=== PATIENT | male | born 1995 | race Caucasian/White ===

== ENCOUNTER 2017-11-26 12:05 | Inpatient (IN) | payer BC, OTHER ==
[~2017-11-26] VITALS: Ht 182.9 cm; Wt 86.2 kg
[2017-11-26] MEDS ORDERED: THIAMINE HCL 200 MG/2 ML VIAL IM ONE (13:00)
[2017-11-26] MEDS ORDERED: IBUPROFEN 400 MG TABLET PO PRN (13:00)
[2017-11-26] MEDS ORDERED: MAGNESIUM HYDROXIDE 30 ML LIQUID UDC PO PRN (13:00)
[2017-11-26] MEDS ORDERED: DIAZEPAM 10 MG TABLET PO PRN (13:00)
[2017-11-26] MEDS ORDERED: MIRALAX 17 GM POWD.PACK PO PRN (13:00)
[2017-11-26] MEDS ORDERED: LORAZEPAM 2 MG/1 ML VIAL IM PRN (13:00)
[2017-11-26] MEDS ORDERED: DIAZEPAM 5 MG TABLET PO PRN (13:00)
[2017-11-26] MEDS ORDERED: ONDANSETRON 4 MG/2 ML VIAL IM PRN (13:00)
[2017-11-26] MEDS ORDERED: ONDANSETRON ODT 4 MG TAB.RAPDIS SL PRN (13:00)
[2017-11-26] MEDS ORDERED: LOPERAMIDE HCL 2 MG CAPSULE PO PRN ×2 (13:00)
[2017-11-26] MEDS ORDERED: diphenhydrAMINE 50 MG CAPSULE PO PRN (13:00)
[2017-11-26] MEDS ORDERED: DICYCLOMINE HCL 20 MG TABLET PO PRN (13:00)
[2017-11-26] MEDS ORDERED: ACETAMINOPHEN 325 MG TABLET PO PRN (13:00)
[2017-11-26] MEDS ORDERED: MAG HYDROX/AL HYDROX/SIMETH 30 ML LIQUID UDC PO PRN (13:00)
[2017-11-26 13:30] VITALS: BP 116/69
--- NOTE | 2017-11-26 13:30 | NUR ---
PRE ADMISSION NOTE Patient is alert awake oriented x4. Patient is admitted for ETOH withdrawal. VITAL SIGNS- B/P-116/69, RR-18, HR-73, Spo2-97%, Pain -0/10. Temp-98.1. Patient reported PMH of anxiety, herniated disk, chronic pain, scoliosis, broken left ankle, Rheumatoid arthritis and withdrawal induced seizure last one was 1 week ago. Patient is anxious, agitated, and answering inappropriately, patient has poor eye contact. Patient's gait is steady. Patient mood is very labile. Patient brought medications with him from home. Explained patient with unit protocol. Will admit the patient on third floor. Addendum: 11/26/17 at 1527 by ROSALBA HURT LVN Patient admitted for BENZO/HEROIN/METH WITHDRAWAL
--- NOTE | 2017-11-26 13:47 | NUR ---
ADMISSION NOTE ALLERGY-NKA STATUS-FULL CODE HEIGHT-6'1 WEIGHT-190 IBS PCP-Patel. LANDRY-4. Patient is a 22 year old male admitted on 11/26/17 for Benzo(Xanax),Heroin, Meth withdrawal, arrived on the unit at 1347. Patient unable to provide UA for UDS. Skin and body check completed, skin intact and no open wounds noted,no contraband found. Pt is full code, NKA, regular diet and on fall/seizure precautions. Pt refuses pneumonia vaccine. Pt brought medication with him from home. Patient reported PMH of anxiety, herniated disk, chronic pain, scoliosis, left ankle fracture, Rheumatoid arthritis. Patient reported he abruptly stop using the Xanax and experienced a withdrawal induced seizure 1 week ago and did not get any medical help. Upon assessment, pt is AAOx4. His mood is labile and anxious, agitated, poor eye contact. Respirations even and unlabored. Denies SOB or chest pain. Bowel sounds active x 4, abdomen soft. PERRLA. Pt denies SI/HI at this time. Patient denies any history of SI/HI. Patient reported family history of alcoholism and hypertension. Patient reported was in treatment in September 2017 and complete the treatment. Patient reported sober for 75 days from May 2017 to August 2017. Substance use History: BENZO (Xanax)- Patient unable to to report amount and daily use patient reported last used was 11/26/17 prior to admission. Patient is not reliable source of information. Will continues to ask patient to verify substance use history. Heroin- Patient reported using since 16 year old, for the past month using daily 1/2gm IV, Snort, Smoke. Last used was 11/12/17 1/2gm IV. Meth-Patient reported using since 20 year old, for the past month using daily 1/2gm smoke. Last used was 11/12/17 1/2gm smoke. Patient seeking treatment because it is affecting his health and family. Patient reported there is no specific trigger. Patient states that he is ready to focus on recovery and open to 12 steps program. Educated patient about plan of care including detox, group therapy and discharge planning. Encourage patient to be open honest and verbalized support for patient in his recovery. Patient oriented to room and encouraged to notify staff with any concerns. Safety measures in place. Call light within reach, side rails up x 2, bed locked and in low position. Will continue to monitor.
[2017-11-26] MEDS ORDERED: TRIA10.8 NS (14:34)
[2017-11-26] MEDS ORDERED: FLUT9.9S NS (14:34)
[2017-11-26] MEDS: GABAPENTIN 300 MG CAPSULE PO SCH ×2 (14:35→20:41)
[2017-11-26 17:00] VITALS: BP 114/64
--- NOTE | 2017-11-26 17:00 | NUR ---
PT COMMUNICATION Patient reported using Xanax for 8 years 6mg PO daily and last used was 10/31/17 at 1100 6mg PO.
[2017-11-26] MEDS: DIAZEPAM 5 MG TABLET PO SCH ×3 (17:08→23:21)
[2017-11-26] MEDS: DIAZEPAM 10 MG TABLET PO PRN ×2 (17:09→21:42)
--- NOTE | 2017-11-26 17:09 | NUR ---
PRN VALIUM Patient reported increased anxiety, agitation, sweats, bilateral hand tremors, light headed, CIWA score noted-11. PRN Valium 10mg PO given as ordered. Will cont to monitor and reassess.
[2017-11-26 17:30] LABS: BASOPHILS # (AUTO) 0.1 K/uL (0.0-8.0); BASOPHILS % (AUTO) 0.8 % (0.0-2.0); EOSINOPHILS # (AUTO) 0.2 K/uL (0.0-0.7); EOSINOPHILS % (AUTO) 2.4 % (0.0-7.0); HEMATOCRIT 44.2 % (36.7-47.1); LYMPHOCYTES # (AUTO) 2.9 K/uL (20.0-40.0); LYMPHOCYTES % (AUTO) 33.9 % (20.5-51.5); MEAN CORPUSCULAR HEMOGLOBIN 31.9 uug (23.8-33.4); MEAN CORPUSCULAR HGB CONC 34 g/dL (32.5-36.3); MEAN CORPUSCULAR VOLUME 93.9 fL (73.0-96.2); MONOCYTES # (AUTO) 0.8 K/uL (2.0-10.0); MONOCYTES % (AUTO) 9.1 % (0.0-11.0); NEUTROPHILS # (AUTO) 4.6 K/uL (1.8-8.9); NEUTROPHILS % (AUTO) 53.8 % (38.5-71.5); PLATELET COUNT (AUTO) 207 K/uL (152-348); RED BLOOD CELL COUNT(AUTO) 4.71 MIL/uL (4.06-5.63); WHITE BLOOD COUNT (AUTO) 8.5 K/uL (3.6-10.2)
[2017-11-26 17:42] LABS: *AMPHETAMINE, URINE NEGATIVE (NEGATIVE); *BARBITURATE, URINE NEGATIVE (NEGATIVE); *CANNABINOID, URINE POSITIVE (NEGATIVE); *COCCAINE, URINE POSITIVE (NEGATIVE); *OPIATE, URINE NEGATIVE (NEGATIVE); *PHENCYCLIDINE SCREEN,URINE NEGATIVE (NEGATIVE)
[2017-11-26 17:44] LABS: ALANINE AMINOTRANSFERASE 30 U/L (16-63); ALKALINE PHOSPHATASE 84 U/L (50-136); AMYLASE 38 U/L (25-115); ASPARTATE AMINOTRANSFERASE 21 U/L (15-37); BILIRUBIN,TOTAL 0.4 mg/dL (0.2-1.0); CARBON DIOXIDE 35 mmol/L (21-32); CHLORIDE 101 mmol/L (98-107); CREATININE 1.2 mg/dL (0.6-1.3); GLUCOSE 88 mg/dL (74-106); LIPASE 89 U/L (73-393); MAGNESIUM 2.2 mg/dL (1.8-2.4); TOTAL PROTEIN, SERUM 7.4 g/dL (6.4-8.2); UREA NITROGEN, BLOOD 19 mg/dL (7-18)
[2017-11-26 17:49] LABS: ETHANOL < 3 MG/DL (0-0)
--- NOTE | 2017-11-26 17:58 | NUR ---
PATIENT COMMUNICATION Patient reported he was living in a sober living, MRSA swabs was done as unit protocol. Patient also reported last detox was in [facility] and completed 10 days of treatment.
--- NOTE | 2017-11-26 18:09 | NUR ---
VALIUM REASSESSMENT CIWA score 8, patient reported Valium was effective in controlling his withdrawal.
--- NOTE | 2017-11-26 19:17 | NUR ---
END OF SHIFT NOTE Gave report to night nurse, patient newly admitted for Xanax, Heroin, Meth withdrawal. Patient is on Valium taper tolerating well. During shift patient received PRN Valium 10mg PO noted to be effective. Vital signs WNL. Skin intact warm and dry to touch. Educated patient regarding importance of attending groups and activities. Patient verbalized understanding . Encourage PO fluids as tolerated. All safety measures in place. Patient endorsed to night nurse in stable condition.
[2017-11-26 20:00] VITALS: BP 124/77
--- NOTE | 2017-11-26 20:00 | NUR ---
START OF SHIFT NOTE RECEIVED REPORT FROM DAY SHIFT NURSE. PATIENT IS A 22 YEAR OLD MALE NEWLY ADMITTED FOR BENZO/HEROIN WITHDRAWAL. PATIENT WAS PLACED ON 3 DAY VALIUM TAPER. PATIENT WAS GIVEN PRN VALIUM. LAST CIWA 8. PATIENT PRESENTS WITH FLAT AFFECT, UNSHAVEN ., DISHEVELED, LABILE MOOD, BLUNTED, ANXIETY, SWEATING, RESTLESS LEGS, NAUSEATED BUT NO EMESIS, IRRITABLE, HEADACHE AND GENERALIZED BODY ACHES. ENCOURAGED FLUIDS. WILL CONTINUE TO MONITOR.
[2017-11-26] MEDS: METHOCARBAMOL 750 MG TABLET PO PRN (20:43)
[2017-11-26] MEDS: MAGNESIUM CHLORIDE 64 MG TABLET.SA PO SCH (20:43)
[2017-11-26] MEDS: QUETIAPINE FUMARATE 25 MG TABLET PO SCH (20:43)
--- NOTE | 2017-11-26 20:43 | NUR ---
PRN ROBAXIN ADMINISTRATION PATIENT C/O GENERALIZED BODY ACHES. WILL MONITOR FOR EFFECTIVENESS
[2017-11-26] MEDS: BUPRENORPHINE HCL 2 MG TAB.SUBL SL PRN (21:01)
--- NOTE | 2017-11-26 21:01 | NUR ---
PRN SUBUTEX ADMINISTRATION PATIENT C/O MUSCLE ACHES, ABDOMINAL CRAMPING, ANXIETY, SWEATING. COWS UPON ASSESSMENT IS 13. WILL MONITOR FOR EFFECTIVENESS Addendum: 11/27/17 at 0733 by EVA MONTANEZ LVN COWS 14 WHEN SUBUTEX WAS GIVEN.
--- NOTE | 2017-11-26 21:01 | NUR ---
PRN VALIUM ADMINISTRATION PATIENT C/O ANXIETY, UNABLE TO SIT STILL, PACING INSIDE ROOM , HALLWAY, AGITATED AND IRRITABLE. WILL MONITOR FOR EFFECTIVENESS Addendum: 11/27/17 at 719 by EVA MONTANEZ LVN CORRECTION.: PATIENT WAS GIVEN PRN VALIUM AT 2142 Addendum: 11/27/17 at 732 by EVA MONTANEZ LVN CIWA WAS 13 WHEN VALIUM WAS GIVEN
--- NOTE | 2017-11-26 21:43 | NUR ---
RAGHU CRUZ RE-ASSESSMENT PATIENT NOTED WALKING AROUND THE HALLWAY. NO FACIAL GRIMACING. PER PATIENT NANCY HELPFUL . WILL CONTINUE TO MONITOR.
--- NOTE | 2017-11-26 22:01 | NUR ---
PRN VALIUM RE-ASSESSMENT PATIENT IS LESS ANXIOUS AND CALM. VALIUM HELPFUL PER PATIENT. COWS 5 AT THIS TIME. WILL CONTINUE TO MONITOR. Addendum: 11/27/17 at 0728 by EVA MONTANEZ LVN VALIUM WAS RE-ASSESSED AT 2242 . CIWA WENT DOWN TO 6
--- NOTE | 2017-11-26 22:01 | NUR ---
PRN SUBUTEX RE-ASSESSMENT PATIENT CALM, LESS ANXIOUS. COWS 5 AT THIS TIME. WILL CONTINUE TO MONITOR.
[2017-11-26] MEDS: KETOROLAC TROMETHAMINE 30 MG INJ IM PRN (23:20)
--- NOTE | 2017-11-26 23:20 | NUR ---
PRN TORADOL IM ADMINISTRATION PATIENT C/O BACK PAIN 02/08. WILL MONITOR FOR EFFECTIVENESS
[2017-11-27] VITALS: BP 133/85
--- NOTE | 2017-11-27 00:20 | NUR ---
PRN TORADOL IM RE-ASSESSMENT PATIENT IN BED WITH EYES CLOSED. NO FACIAL GRIMACING. RESPIRATION EVEN AND UNLABORED. WILL CONTINUE TO MONITOR.
--- NOTE | 2017-11-27 04:00 | NUR ---
COWS AND CIWA DEFERRED PATIENT SLEEPING. RESPIRATION EVEN AND UNLABORED. VS REFUSED. WILL CONTINUE TO MONITOR
--- NOTE | 2017-11-27 07:30 | NUR ---
START OF SHIFT: PATIENT IS A 22YR OLD MALE ADMITTED TO [facility] ON 11/26/17 FOR A MEDICALLY SUPERVISED WITHDRAWAL FROM BENZODIAZEPINES AND OPIATES. HE HAS BEEN PLACED ON A 3 DAY VALIUM TAPER. PRN MEDS GIVEN ON PM SHIFT: VALIUM 5MG, VALIUM 10MG, ROBAXIN, TORADOL AND SUBUTEX. PATIENT HAS SLEPT FOR 5+ HOURS, LAST COWS 5 AND CIWA 5 @ MIDNIGHT.PATIENT IS ASLEEP IN BED AT THIS TIME, BREATHING EVEN AND UNLABORED, SIDE RAILS UP X 2. CONTINUE TO FOLLOW MD PLAN OF CARE.
--- NOTE | 2017-11-27 07:31 | NUR ---
END OF SHIFT NOTE PATIENT SLEPT 6 HOURS. FLUID INTAKE 750ML. VOIDED X 3. BM X 1. MONITORED PATIENT THROUGHOUT SHIFT. PATIENT PRESENTED WITH LABILE MOOD, BLUNTED, ANXIETY, AGITATION , RESTLESS , DEMANDING, "MED SEEKING ", ARGUMENTATIVE, DYSPHORIA, OBSESSIVE-COMPULSIVE THOUGHTS, LOUD SPEECH, MANIPULATIVE, ATTENTION SEEKING, BLAMES OTHERS , IRRITABLE AND FLIGHT OF IDEAS. CONTINUOS REDIRECTION PROVIDED. PATIENT WAS GIVEN PRN SUBUTEX FOR COWS 14 , EFFECTIVE COWS WENT DOWN TO 5. VALIUM PRN GIVEN FOR CIWA 13 , RE-ASSESSED AFTER AN HOUR AND CIWA WENT DOWN TO 6. ROBAXIN AND TORADOL IM GIVEN FOR GENERALIZED BODY ACHES. SAFETY MEASURES IN PLACE. CALL LIGHT IN REACH. WILL CONTINUE TO MONITOR. LAST COWS 5 AND CIWA 5.
[2017-11-27 08:00] VITALS: BP 119/63
[2017-11-27] MEDS: FOLIC ACID 1 MG TABLET PO SCH ×2 (09:00→09:53)
[2017-11-27] MEDS: THIAMINE HCL 100 MG TABLET PO SCH ×2 (09:00→09:51)
[2017-11-27] MEDS: DOCUSATE SODIUM 250 MG CAPSULE PO SCH ×2 (09:00→09:51)
[2017-11-27] MEDS ORDERED: TUBERCULIN,PURIF.PROT.DERIV. 5 TU/0.1 ML TEST ID ONE (09:00)
[2017-11-27] MEDS: MAGNESIUM CHLORIDE 64 MG TABLET.SA PO SCH ×3 (09:51→21:03)
[2017-11-27] MEDS: GABAPENTIN 300 MG CAPSULE PO SCH ×4 (09:51→21:04)
[2017-11-27] MEDS: DIAZEPAM 5 MG TABLET PO SCH ×2 (09:51→10:33)
[2017-11-27] MEDS: MULTIVITAMINS,THERAPEUTIC TABLET PO SCH ×2 (09:51→10:36)
--- NOTE | 2017-11-27 10:00 | NUR ---
BEHAVIOR NOTE/ REFUSAL OF AM MEDS THIS NURSE ENTERED PT ROOM TO ADMINISTER AM MEDS, PATIENT IMMEDIATELY DECLARED HE WANTED 15MG OF VALIUM, I EXPLAINED THAT HIS SCHEDULED DOSE RIGHT NOW WAS 5MG AND AFTER REASSESSMENT IN 1 HOUR HE COULD HAVE 10MG MORE. PATIENT WAS IRATE, STAMPING AROUND IN HIS ROOM, DEMANDING AT THE NURSING STATION TO TALK TO CHARGE NURSE FIELD SERVICES MANAGER. BEHAVIOR ESCALATING, PATIENT REFUSES AM MEDS INCLUDING 5 MG VALIUM, 300MG GABAPENTIN, SLOW MAG, FOLIC ACID, MULTI VITAMINS, COLACE AND B1. PATIENT VERBALLY ABUSIVE TO STAFF, CURSING AND RAISING VOICE, WAS ASKED TO STOP USING INAPPROPRIATE LANGUAGE, HE WOULD APOLOGIZE AND 2 MINS LATER START USING PROFANITY AGAIN. THIS NURSE WASTED PATIENT MEDICATIONS AND THEN AT 1020 PT STATED HE WOULD THEN LIKE TO TAKE THEM BUT NOT THE VITAMINS. PATIENT GOES THROUGH MANIC STATES, CALMS DOWN AND IS EMOTIONAL AND THEN BACK TO MANIC STATE, VOLATILE EMOTIONS AND THOUGHT PROCESS. WILL CONTINUE TO MONITOR AND ASSIST IN REDIRECTION.
[2017-11-27] MEDS: BUPRENORPHINE HCL 2 MG TAB.SUBL SL PRN ×3 (10:33→22:01)
--- NOTE | 2017-11-27 10:33 | NUR ---
PRN SUBUTEX SUBUTEX 4MG SL GIVEN FOR COWS 13, WILL REASSESS
[2017-11-27] MEDS: KETOROLAC TROMETHAMINE 30 MG INJ IM PRN ×2 (11:02→22:00)
--- NOTE | 2017-11-27 11:05 | NUR ---
PRN Toradol Pt reports 8/10 back pain. He is observed with facial grimacing and rubbing his back. PRN Toradol administered.
--- NOTE | 2017-11-27 11:33 | NUR ---
PRN REASSESS PATIENT IS COMPLAINING OF NOT RECEIVING ENOUGH MEDICATION AT THIS TIME AND DENIES THAT THE SUBUTEX MAKES ANY DIFFERENCE, TORADOL IM WAS GIVEN BY CN
--- NOTE | 2017-11-27 11:35 | NUR ---
PRN Toradol reassessment PRN Toradol effective. Pt states pain level is reduced to 2/10.
[2017-11-27] MEDS: DIAZEPAM 10 MG TABLET PO PRN (11:38)
--- NOTE | 2017-11-27 11:40 | NUR ---
PRN VALIUM VALIUM 10MG PO GIVEN FOR CIWA 11 AND INCREASED AGITATION/ANXIETY, WILL REASSESS AND CONT TO MONITOR
[2017-11-27 12:00] VITALS: BP 123/72
--- NOTE | 2017-11-27 12:05 | NUR ---
PRN TORADOL REASSESS TORADOL 30MG IM SOMEWHAT EFFECTIVE, PAIN LEVEL NOW 3/10, CONT TO MONITOR
--- NOTE | 2017-11-27 12:40 | NUR ---
PRN REASSESS PT IS LESS AGITATED AND ANXIOUS, VALIUM 10MG PO EFFECTIVE, CONT TO MONITOR
[2017-11-27] MEDS ORDERED: ALBUTEROL SULFATE 2.5 MG/ 0.5 ML NEBU NEB PRN (14:45)
[2017-11-27] MEDS: DIAZEPAM 10 MG TABLET PO SCH ×2 (14:49→21:04)
--- NOTE | 2017-11-27 15:20 | NUR ---
PRN SUBUTEX SUBUTEX 4MG SL GIVEN FOR S/S OF WITHDRAWAL, RESTLESS LEGS, SWEATS/CHILLS, RUNNY NOSE, WILL CONT TO MONITOR
[2017-11-27 16:00] VITALS: BP 119/71
--- NOTE | 2017-11-27 16:20 | NUR ---
PRN SUBUTEX REASSESS PATIENT STATES WITHDRAWAL SYMPTOMS HAVE LESSENED , NO CHILLS OR SWEATS, CONT TO MONITOR
[2017-11-27] MEDS: HYDROXYZINE PAMOATE 25 MG CAPSULE PO PRN ×2 (17:29→23:02)
[2017-11-27] MEDS: METHOCARBAMOL 750 MG TABLET PO PRN (17:29)
[2017-11-27] MEDS: FLONASE SENSIMIST NS SCH (17:30)
[2017-11-27] MEDS: CLONIDINE HCL 0.1 MG TABLET PO PRN (17:30)
--- NOTE | 2017-11-27 17:30 | NUR ---
PRN MEDICATION CLONIDINE 0.1 MG PO AND VISTARIL 50MG PO GIVEN FOR AGITATION / ANXIETY ROBAXIN 750MG PO GIVEN FOR C/O MUSCLE ACHES CONT TO MONITOR
--- NOTE | 2017-11-27 17:45 | NUR ---
Nursing Note Pt was escorted downstairs by Administration to look through his belongings. Pt requested to take his neck pillow upstairs. He was not permitted by Administration to have this item on the unit. When the pillow was searched by the Intake personnel a cannabis vaporizer pen device was found inside of it. Geospatial Technologist Charlie aware and spoke with patient. The vaporizer was destroyed by 2 RN's.
--- NOTE | 2017-11-27 18:30 | NUR ---
PRN REASSESS MEDICATIONS MODERATELY EFFECTIVE, PT STILL COMPLAINS OF NOT GETTING ENOUGH OF THE " RIGHT MEDICATION" ( BENZOS) CONT TO MONITOR
--- NOTE | 2017-11-27 18:59 | NUR ---
END OF SHIFT : PATIENT IS A 22 YR OLD MALE ADMITTED TO [facility] ON 11/26/17 FOR A MEDICALLY SUPERVISED DETOX FROM BENZOS AND OPIATES. HE IS ON A 3 DAY VALIUM TAPER WITH PRN SUBUTEX. PATIENT PRESENTS EXTREMELY HYPER, HYPERVERBAL, NEEDY, MED SEEKING AND MANIC AT TIMES. PRN MEDS GIVEN ON THIS SHIFT: VALIUM 10MG, TORADOL IM, SUBUTEX 4MG X2, VISTARIL, CLONIDINE AND ROBAXIN. HE HAD A FLUID INTAKE OF 1650 ML, 3 VOIDS AND 0 BM. LAST COWS 11 AND CIWA 10 @ 1600. CONTINUE TO FOLLOW MD PLAN OF CARE. ENDORSED TO [facility].
--- NOTE | 2017-11-27 19:30 | NUR ---
Start of Shift Pt is a 22 y/o male admitted 11/26/17 for medically managed withdrawal/detox from Xanax, Heroin, and Methamphetamine salts. Pt is on a 3 day Valium taper, full code and NKA. Last reported COWS was 11 and CIWA 10 at 1600. Pt found sleeping in bed, arousable to voice, and quickly becoming very anxious. Speech is rapid and behavior manic. Pt is disheveled, hypervigilant and hyperactive- endorsement reports med-seeking behavior and same evidenced during interview. Evening review of meds brings repeated requests for an extra Valium 5mg in addition to scheduled Valium, other meds/PRNs for anxiety and pain. Will continue to monitor pt for duration of shift, promptly attending to all needs.
[2017-11-27 20:00] VITALS: BP 113/70
[2017-11-27] MEDS: QUETIAPINE FUMARATE 25 MG TABLET PO SCH (21:06)
--- NOTE | 2017-11-27 22:00 | NUR ---
PRN Meds Toradol 30mg IM given for generalized pain and body aches, per pt "only thing that'll touch it". Administered to right buttock. Subutex 4mg SL also given for COWS of 14. Will continue to monitor, reassessing in 30 minutes and 1 hour, and promptly attending to all pt needs.
--- NOTE | 2017-11-27 22:30 | NUR ---
PRN Reassessment Toradol 30mg IM given 30 minutes prior for generalized body aches 11/08. At present Pt reports improvement, unable to quantify. Med effective. Will continue to monitor, promptly attending all pt needs
--- NOTE | 2017-11-27 23:00 | NUR ---
PRN Reassessment Subutex 4mg SL given 1 hour prior for COWS of 14. At present, pt requesting sleep med, scheduled Seroquel inadequate. Subutex moderately effective-Pt appears less manic, less hyperactive. Will continue to monitor and promptly attend to all patient needs.
--- NOTE | 2017-11-27 23:02 | NUR ---
PRN Med Vistaril 50mg PO given for anxiety/agitation/insomnia. Will continue to monitor, reassessing in 1 hour, promptly attending to all pt needs.
--- NOTE | 2017-11-28 00:02 | NUR ---
PRN Reassessment Vistaril 50mg PO given for anxiety per pt request. At present pt sleepig. Med effective. Will continue to monitor, promptly attending to all pt needs.
[2017-11-28 03:10] LABS: HEPATITIS B SURFACE AG Negative (Negative)
[2017-11-28 04:00] VITALS: BP 103/70
[2017-11-28] MEDS: HYDROXYZINE PAMOATE 25 MG CAPSULE PO PRN ×3 (04:30→23:12)
--- NOTE | 2017-11-28 04:30 | NUR ---
PRN Med/Behavior Note; Vistaril 50mg PO given for "panic attack" per patient. Pt extremely anxious/agitated, continues to request Valium-no PRN's available, next scheduled for 9am. Tech injection molding supervisor Ruel and CN consulted. Pt ambulating halls, straigtening room, sitting in hallway. Will continue to monitor, optioning Security and code xiong open. Addendum: 11/28/17 at 0456 by JE CIFUENTES RN unable to perform COWS/CIWA due to high anxiety/agitation of pt
--- NOTE | 2017-11-28 06:10 | NUR ---
PRN Med Subutex 4mg SL given for COWS 19, CIWA 20, acute panic attack according to pt. BP 103/70, HR 61. Agitation/Anxiety diminishing before med administration, Pt console and directed while Subutex dissolving. Anxiety/agitation greatly improved within 10 minutes. Will continue to monitor and promptly attend to all pt needs
[2017-11-28] MEDS: BUPRENORPHINE HCL 2 MG TAB.SUBL SL PRN (06:30)
--- NOTE | 2017-11-28 07:10 | NUR ---
PRN Reassessment Subutex 4mg SL given one hour prior for acute anxiety/panic attack. At present pt resting quietly. Med effective.
--- NOTE | 2017-11-28 07:30 | NUR ---
Start of Shift Pt is a 22 y/o male admitted 11/26/17 for medically supervised withdrawal from benzodiazepines, opiates, and Methamphetamine salts. Pt is on a 3 day Valium taper, full code and NKA. Endorsed pt.s behavior from previous shift was restless, agitated, anxious, impulsive, entitled, and needy. Last reported COWS was 19 and CIWA 20 at 0600. Received pt. in room sitting up with eyes open. Pt. verbalized feelings of increased anxiety. Pt. presents with dark circles around his eyes and disheveled. Pt.s room is cluttered with personal items. Encouraged pt. to keep and clean personal space. Pt. states I dont want to detox from benzos, I have anxiety, I need them. Educated pt. on treatment plan and medication regiment. Encourage pt. to discuss treatment option with MD. PRN s for PM shift include Toradol 30mg IM, 2 x Vistaril 50mg PO, and 2 x Subutex SL. Pt slept for 7 hours. Will continue to monitor pts behavior for safety.
--- NOTE | 2017-11-28 07:53 | NUR ---
End of Shift Pt is a 22 y/o male admitted 11/26/17 for medically managed withdrawal/detox from Xanax, Heroin, and Methamphetamine salts. Pt is on a 3 day Valium taper, full code and NKA. Last reported COWS was 19 and CIWA 20 at 0600. PRNs for shift include Toradol 30mg IM, 2 x Vistaril 50mg PO, and 2 x Subutex SL. Pt slept for 7 hours, with 1500 intake, 3 voids, and 0BMs Will continue to monitor pt for duration of shift, promptly attending to all needs.
[2017-11-28 08:53] VITALS: BP 104/62
[2017-11-28] MEDS ORDERED: DIAZEPAM 5 MG TABLET PO SCH (09:00)
[2017-11-28] MEDS: DOCUSATE SODIUM 250 MG CAPSULE PO SCH (09:13)
[2017-11-28] MEDS: MULTIVITAMINS,THERAPEUTIC TABLET PO SCH (09:13)
[2017-11-28] MEDS: FOLIC ACID 1 MG TABLET PO SCH (09:13)
[2017-11-28] MEDS: BUPRENORPHINE HCL 2 MG TAB.SUBL SL SCH ×3 (09:14→21:22)
[2017-11-28] MEDS: MAGNESIUM CHLORIDE 64 MG TABLET.SA PO SCH ×2 (09:14→21:21)
[2017-11-28] MEDS: THIAMINE HCL 100 MG TABLET PO SCH (09:14)
[2017-11-28] MEDS: GABAPENTIN 300 MG CAPSULE PO SCH ×3 (09:14→21:22)
[2017-11-28] MEDS: DIAZEPAM 5 MG TABLET PO SCH ×4 (09:14→21:22)
[2017-11-28] MEDS: FLONASE SENSIMIST NS SCH ×2 (09:15→16:30)
[2017-11-28 12:00] VITALS: BP 132/77
--- NOTE | 2017-11-28 12:10 | NUR ---
PRN medication Pt. complain of low back pain 02/08. States that he has a previous back injury. Toradol 30mg given IM on right gluteus. Pt. tolerated procedure well. Will continue to monitor pt.'s behavior for medication effectiveness.
[2017-11-28] MEDS: KETOROLAC TROMETHAMINE 30 MG INJ IM PRN ×2 (12:11→21:21)
--- NOTE | 2017-11-28 13:00 | NUR ---
PRN Re-assessment. Pt. states that his pain has lowered to 2/10 and is tolerable. Medication affective. Will continue to monitor pt.'s behavior for safety.
[2017-11-28] MEDS: CLONIDINE HCL 0.1 MG TABLET PO PRN ×2 (14:14→23:13)
[2017-11-28] MEDS: METHOCARBAMOL 750 MG TABLET PO PRN ×2 (14:14→23:12)
--- NOTE | 2017-11-28 14:25 | NUR ---
PRN Medication. Pt. presented to the nursing station anxious, restless and complain of body aches. Gave pt. clonidine, robaxin and vistaril. Will continue to monitor pt.'s behavior for safety and medication effectiveness.
--- NOTE | 2017-11-28 15:00 | NUR ---
PRN Re-Assessment. Pt. reports still feeling anxious but appears visibly less agitated and able to sit still. Medication effective. Will continue to monitor for safety.
[2017-11-28 16:30] VITALS: BP 146/80
--- NOTE | 2017-11-28 19:22 | NUR ---
End of Shift Pt is a 22 y/o male admitted 11/26/17 for medically supervised withdrawal from benzodiazepines, opiates, and Methamphetamine salts. Pt is on a 3 day Valium taper, full code and NKA. Pt. was anxious and labile with poor boundaries and impulse control. Pt. was medication focused, and constantly tries to convince nursing staff to give pt. more medications. Pt. presents with dark circles around his eyes and disheveled. Pt.s room is cluttered with personal items. Encouraged pt. to keep and clean personal space. Pt. continues to verbalize I dont want to detox from benzos, how many times do I fucking have to tell you. Educated pt. on treatment plan and medication regiment. Pt. is able to be redirected at this time. Encourage pt. to discuss treatment option with MD. PRN s for AM shift include Toradol 30mg IM, Vistaril 50mg PO, Clonidine, and Robaxin. Will endorse pt.s care to oncoming shift.
[2017-11-28 20:00] VITALS: BP 121/79
--- NOTE | 2017-11-28 20:00 | NUR ---
Start of Shift Note Received 22 y/o male px, admitted for medically supervised withdrawal from Xanax, and Heroin. Px is placed on 5 day modified Valium taper started on 11/26/2017 and on 4 day Subutex taper started on 11/28/2017. Px is tolerating them but px is being demanding on his medications. Last reported COWS 14 and CIWA 14 by AM shift nurse. During the rounds at 1999, chantal was asleep on bed in right side lying position. Respirations are even and unlabored. Bed on lowest position, side rails up 2x and call light within reach. We'll continue to monitor.
--- NOTE | 2017-11-28 20:00 | NUR ---
COWS and CIWA deferred COWS and CIWA deferred due to the px is asleep, to assess if the px is awake per doctor's order. We'll continue to monitor.
[2017-11-28] MEDS ORDERED: QUETIAPINE FUMARATE 25 MG TABLET PO SCH (21:00)
--- NOTE | 2017-11-28 21:00 | NUR ---
Px wakes up Px woke up. Px stated "I have body pains 04/10 and my anxiety is 10." We'll continue to monitor.
--- NOTE | 2017-11-28 21:21 | NUR ---
PRN Toradol Px received Toradol 30 mg IM on left deltoids as PRN medication for body pains of 10/. We'll continue to monitor.
[2017-11-28] MEDS: QUETIAPINE FUMARATE 100 MG TABLET PO SCH (21:22)
--- NOTE | 2017-11-28 21:51 | NUR ---
Reassessment of pain Px states "I am still in pain. it's still 04/10." We'll continue to monitor.
--- NOTE | 2017-11-28 23:20 | NUR ---
PRN medications At 2312, px received Robaxin 750 mg/tab, 1 tab PO for pain of 10/10 and Vistaril 50 mg PO for anxiety. At 231, Px received Clonidine 0.1 mg PO for anxiety. At 2320, px received Ventolin neb for SOB. We'll continue to monitor.
[2017-11-29] VITALS: BP 131/85
--- NOTE | 2017-11-29 00:15 | NUR ---
Reassessments Px states "Pain improved a little, I am still in pain, it will not go. I don't have SOB anymore." We'll continue to monitor.
[2017-11-29] MEDS ORDERED: diphenhydrAMINE 50 MG CAPSULE PO ONE (01:15)
[2017-11-29 04:00] VITALS: BP 122/79
--- NOTE | 2017-11-29 07:10 | NUR ---
End of Shift Note During the shift at 2120, px received Toradol 30 mg IM for pain of 04/10. It was not effective according to the px. At 2311, he received Robaxin 750 mg PO for pain and Vistaril 50 mg PO for anxiety. At 2312, px received Clonidine 0.1 mg PO for anxiety. They were not effective. At 2319, px received Ventolin neb for SOB, it was effective. At 0106, px received Benadryl 50 mg PO as 1x dose med. Pxs oral intake is 350 ml, voided 1x, with no BM. Px slept for 5 hours total. At 0630, px Last COWS 13 and CIWA 13. Bed on lowest position, side rails up 2x and call light within reach. We'll continue to monitor. Px endorsed to AM shift nurse.
--- NOTE | 2017-11-29 07:30 | NUR ---
START OF SHIFT Pt 22 y/o male admitted for benzo, heroin, and meth withdrawal. Pt received in room on bed with eyes closed resting, but easily arousable to name. Pt alert and oriented to name, place, and time. Perrla. Skin warm and moist to touch. Respirations even and unlabored. Bilateral hand tremors noted. Clothes and empty drink bottles scattered throughout the room. Pt appears disheveled and anxious this morning. Encouraged to maintain hygiene. It was reported that pt slept for 5 hours last night. Last cows=13 and ciwa=13 @0000 reported. Bed on lowest position with side rails x2 up for safety. Call light within reach. Addendum: 11/29/17 at 0932 by SUMMER ROMERO RN additional Pt is a 5 day valium taper and is on day 3. Pt also on a 4 day subutex taper and is on day 3.
[2017-11-29 08:05] VITALS: BP 101/62
[2017-11-29] MEDS: MULTIVITAMINS,THERAPEUTIC TABLET PO SCH (08:39)
[2017-11-29] MEDS: DOCUSATE SODIUM 250 MG CAPSULE PO SCH (08:39)
[2017-11-29] MEDS: MAGNESIUM CHLORIDE 64 MG TABLET.SA PO SCH ×2 (08:40→20:35)
[2017-11-29] MEDS: THIAMINE HCL 100 MG TABLET PO SCH (08:40)
[2017-11-29] MEDS: FOLIC ACID 1 MG TABLET PO SCH (08:40)
[2017-11-29] MEDS: GABAPENTIN 300 MG CAPSULE PO SCH ×3 (08:40→20:35)
[2017-11-29] MEDS: DIAZEPAM 5 MG TABLET PO SCH ×3 (08:40→20:35)
[2017-11-29] MEDS: FLONASE SENSIMIST NS SCH ×2 (08:41→17:05)
[2017-11-29] MEDS: KETOROLAC TROMETHAMINE 30 MG INJ IM PRN ×2 (08:41→23:41)
--- NOTE | 2017-11-29 08:52 | NUR ---
PRN Pt states has generalized body aches 01/08. toradal IM prn per MD order given and tolerated well.
[2017-11-29] MEDS ORDERED: BUPRENORPHINE HCL 2 MG TAB.SUBL SL SCH (09:00)
[2017-11-29 12:00] VITALS: BP 147/74
--- NOTE | 2017-11-29 13:49 | NUR ---
Client was prompted to attend group sessions and client stated that he would attend.
[2017-11-29] MEDS: BUPRENORPHINE HCL 2 MG TAB.SUBL SL SCH ×2 (14:10→20:36)
[2017-11-29 16:00] VITALS: BP 130/80
[2017-11-29] MEDS ORDERED: IBUPROFEN 600 MG TABLET PO PRN (16:00)
[2017-11-29] MEDS: BACLOFEN 20 MG TABLET PO SCH (17:05)
[2017-11-29] MEDS: CLONIDINE HCL 0.1 MG TABLET PO SCH ×2 (17:05→22:39)
[2017-11-29] MEDS: HYDROXYZINE PAMOATE 25 MG CAPSULE PO SCH ×2 (17:06→23:41)
--- NOTE | 2017-11-29 19:18 | NUR ---
END OF SHIFT Pt 22 y/o male admitted for benzo, heroin, and meth withdrawal. Pt alert and oriented to name, place, and time. Perrla. Skin warm and moist to touch. Respirations even and unlabored. Bilateral hand tremors noted. Pt disheveled. Clothes scattered throughout the room. Encouraged to maintain hygiene. Pt with angry outbursts throughout the day. Pt demanding medications from the MD when MD was here to see the pt. Pt needed to be redirected multiple times throguhout the day. Pt intrusive coming into nursing station and sitting on chairs. Pt easily irritable and agitated. Pt was seen by MD today. pt medication compliant and tolerated well. No ASE noted. cows=10@0800, 10@1200, and 10@1600. ciwa=10@0800, 10@1200, and 10@1600. Pt is on 5 day valium taper and is on day 3. pt also on 4 day subutex taper and is on day 2. Bed on lowest position with side rails x2 up for safety. Call light within reach.
--- NOTE | 2017-11-29 19:19 | NUR ---
Start of shift note Received report from day shift nurse. Pt is a 22 yo male, A+Ox4, presenting to [facility] for Benzo/Opiate/Meth withdrawal. Pt noted to be anxious, agitated, and restless. Pt has HX of Herniated disc, anxiety, rheumatoid arthritis, chronic pain, and seizure which will be monitored during shift. Pt is on 5 day Valium and 4 day Subutex tapers, tolerated well. Respirations even and unlabored. Will continue to monitor.
[2017-11-29 20:10] VITALS: BP 135/71
[2017-11-29] MEDS: QUETIAPINE FUMARATE 100 MG TABLET PO SCH (22:40)
--- NOTE | 2017-11-29 23:41 | NUR ---
PRN Toradol Pt c/o lower back pain 02/08 and requested for PRN Toradol. Medication given and tolerated well. Will reassess within 1 HR. Will continue to monitor.
[2017-11-30 00:19] VITALS: BP 124/82
--- NOTE | 2017-11-30 00:40 | NUR ---
PRN Toradol Reassessment Medication effective. Pt expresses reduction in pain to 4/10. No s/s of ASE noted at this time. Respirations even and unlabored. Will continue to monitor.
[2017-11-30] MEDS: CLONIDINE HCL 0.1 MG TABLET PO SCH (03:45)
[2017-11-30 04:27] VITALS: BP 127/76
--- NOTE | 2017-11-30 07:00 | NUR ---
End of shift note Pt was continuously noted with anxiety, agitation, restlessness, irritability, and sweats. Pt remained in room for majority of shift except to get food from kitchen, to go smoke on smoking patio, and to interact with other patients in recreational room. Pt is on 5 day Valium and 4 day Subutex tapers, tolerated well. Pt was given PRN Toradol @2341. Pt slept for a total of 7 HRS. Last COWS: 7 and Last CIWA: 7 @0400. Respirations even and unlabored. Will endorse to day shift nurse.
--- NOTE | 2017-11-30 07:30 | NUR ---
Start of Shift Physician Support Coordinator received report on 22 year old male admitted to [facility] on 11/26/17 for medical management of Benzodiazepine, Opiate and Methamphetamine withdrawals. Pt endorses NKA, full code and regular diet. PMH of herniated disc, RA and seizures, with last seizure approximately 1 week ago. PPH of anxiety. Pt on a Valium and Subutex taper, tolerating well with last COWS 7 and CIWA 7, per NOC report. PRN Toradol(pain) administered on NOC, per report. Physician Support Coordinator encounters pt in pts room resting with eyes closed, rise and fall of chest noted. Even and unlabored respirations. Bed in low position with wheels locked and side rails up x2. Will continue to monitor, support and encourage according to plan of care.
[2017-11-30] MEDS: CLONIDINE HCL 0.2 MG TABLET PO SCH ×3 (08:00→17:46)
[2017-11-30 08:11] VITALS: BP 106/63
[2017-11-30] MEDS: BUPRENORPHINE HCL 2 MG TAB.SUBL SL SCH ×3 (08:26→20:15)
[2017-11-30] MEDS: THIAMINE HCL 100 MG TABLET PO SCH (08:27)
[2017-11-30] MEDS: MULTIVITAMINS,THERAPEUTIC TABLET PO SCH (08:27)
[2017-11-30] MEDS: DIAZEPAM 5 MG TABLET PO SCH ×2 (08:27→20:15)
[2017-11-30] MEDS: HYDROXYZINE PAMOATE 25 MG CAPSULE PO SCH ×2 (08:27→15:18)
[2017-11-30] MEDS: FOLIC ACID 1 MG TABLET PO SCH (08:27)
[2017-11-30] MEDS: MAGNESIUM CHLORIDE 64 MG TABLET.SA PO SCH ×2 (08:27→20:15)
[2017-11-30] MEDS: BACLOFEN 20 MG TABLET PO SCH ×3 (08:27→17:46)
[2017-11-30] MEDS: DOCUSATE SODIUM 250 MG CAPSULE PO SCH (08:27)
[2017-11-30] MEDS: GABAPENTIN 300 MG CAPSULE PO SCH ×3 (08:27→20:15)
[2017-11-30] MEDS: FLONASE SENSIMIST NS SCH ×2 (08:28→17:46)
[2017-11-30] MEDS: SERTRALINE HCL 50 MG TABLET PO SCH (09:52)
[2017-11-30 12:40] VITALS: BP 130/71
[2017-11-30 16:30] VITALS: BP 109/63
--- NOTE | 2017-11-30 19:15 | NUR ---
End of Shift Decator Operator provided report on 22 year old male admitted to [facility] on 11/26/17 for medical management of Benzodiazepine, Opiate and Methamphetamine withdrawals. Pt endorses NKA, full code and regular diet. PMH of herniated disc, RA and seizures, with last seizure approximately 1 week ago. PPH of anxiety. Pt on a Valium and Subutex taper, tolerating well with last COWS 6 and CIWA 5 recorded at 1630. No PRN medication administered on this shift. Pt is AO x4 and makes his needs known. Cooperative, but manipulative, entitled and gamey. Pt is dramatic and attention seeking. Lacks insight. Bed in low position with wheels locked and side rails up x2.
--- NOTE | 2017-11-30 19:20 | NUR ---
Start of shift note Received report from day shift nurse. Pt is a 22 yo male, A+Ox4, presenting to [facility] for Benzo/Opiate/Meth withdrawal. Pt noted with anxiety, agitation, restlessness, and irritability. Pt has HX of herniated disc, Anxiety, rheumatoid arthritis, chronic pain, and seizure which will be monitored during shift. Pt is on 5 day Valium and 4 day Subutex tapers, tolerated well. Respirations even and unlabored. Will continue to monitor.
[2017-11-30 20:04] VITALS: BP 127/89
[2017-11-30] MEDS ORDERED: QUETIAPINE FUMARATE 200 MG TABLET PO ONE (22:30)
[2017-11-30] MEDS: QUETIAPINE FUMARATE 100 MG TABLET PO SCH (23:01)
[2017-12-01 00:12] VITALS: BP 112/71
[2017-12-01 04:50] VITALS: BP 124/79
[2017-12-01] MEDS: CLONIDINE HCL 0.2 MG TABLET PO SCH ×4 (06:00→17:07)
--- NOTE | 2017-12-01 07:00 | NUR ---
End of shift note Pt was continuously noted to be restless, agitated, anxious, and irritable. Pt remained in room for majority of shift except to get food from kitchen, to go smoke on smoking patio, and to interact with other patients in recreational room. Pt is on 5 day Valium and 4 day Subutex tapers, tolerated well. Pt was not given any PRN medications during shift. Pt slept for a total of 6 HRS. Last COWS: 8 and CIWA: 7 @0400. Respirations even and unlabored. Will endorse to day shift nurse.
[2017-12-01 08:00] VITALS: BP 97/60
--- NOTE | 2017-12-01 08:10 | NUR ---
START OF SHIFT: RECEIVED PT A/O X 4. HE PRESENTS WITH DYSPHORIC AFFECT AND ANXIOUS MOOD. HE REPORTS ANXIETY,IRRITABILITY AND RESTLESSNESS. COWS 4 CIWA 5. HE EXPRESSED DISSATISFACTION ABOUT NOT HAVING VALIUM A PART OF HIS ROUTINE MEDS THIS AM.EDUCATED PT ABOUT TAPER. OFFERED SUPPORT. VISTARIL GIVEN ORDERED TO MANAGE ANXIETY. SUBUTEX ADMINISTERED ORDERED. HE STATES HE IS ATTENDING GROUPS. ENCOURAGED INCREASED FLUIDS TO ASSIST WITH FACILITATING DETOX PROCESS. WILL CONTINUE TO MONITOR AND MANAGE S/S OF W/D.
[2017-12-01] MEDS: BACLOFEN 20 MG TABLET PO SCH ×3 (08:39→17:04)
[2017-12-01] MEDS: GABAPENTIN 300 MG CAPSULE PO SCH ×2 (08:39→15:09)
[2017-12-01] MEDS: HYDROXYZINE PAMOATE 25 MG CAPSULE PO SCH ×3 (08:39→15:09)
[2017-12-01] MEDS: MAGNESIUM CHLORIDE 64 MG TABLET.SA PO SCH (08:41)
[2017-12-01] MEDS: THIAMINE HCL 100 MG TABLET PO SCH (08:41)
[2017-12-01] MEDS: FOLIC ACID 1 MG TABLET PO SCH (08:41)
[2017-12-01] MEDS: MULTIVITAMINS,THERAPEUTIC TABLET PO SCH (08:41)
[2017-12-01] MEDS: DOCUSATE SODIUM 250 MG CAPSULE PO SCH (08:41)
[2017-12-01] MEDS: SERTRALINE HCL 50 MG TABLET PO SCH (08:41)
[2017-12-01] MEDS: FLONASE SENSIMIST NS SCH ×2 (08:41→17:05)
[2017-12-01] MEDS ORDERED: BUPRENORPHINE HCL 2 MG TAB.SUBL SL SCH (09:00)
[2017-12-01] MEDS: KETOROLAC TROMETHAMINE 30 MG INJ IM PRN (11:51)
[2017-12-01 12:00] VITALS: BP 120/80
--- NOTE | 2017-12-01 12:03 | NUR ---
PT IS AGITATED AND PACING THE HALLWAYS DEMANDING VALIUM OR ATIVAN AND INSISTING HIS BZO TAPER WAS TOO SHORT. ADMINISTERED CLONIDINE ORDERED. HE ALSO C/O BACK PAIN 01/08 IM TORADOL ADMINISTERED TO MANAGE PAIN. HE IS RAISING HIS VOICE AND IRRITATED. VS WNL. WILL CONTINUE TO MONITOR AND OFFER SUPPORT.
--- NOTE | 2017-12-01 12:06 | NUR ---
CHARGE NURSE SPOKE WITH PSYCH. AND SEROQUEL 50 MG PO ORDERED ONE TIME. WILL ADMINISTER ORDERED.
[2017-12-01] MEDS ORDERED: QUETIAPINE FUMARATE 25 MG TABLET PO ONE (12:07)
--- NOTE | 2017-12-01 13:00 | NUR ---
TORADOL AND SEROQUEL EFFECTIVE. HE IS CALM AND APOLOGIZED FOR HIS BEHAVIOR. WILL CONTINUE TO MONITOR
[2017-12-01] MEDS ORDERED: DICY20TA28 PO (14:25)
[2017-12-01] MEDS ORDERED: CLON0.2T12 PO (14:25)
[2017-12-01] MEDS ORDERED: GABA-534 PO (14:25)
[2017-12-01] MEDS ORDERED: BACL20TA PO (14:25)
[2017-12-01] MEDS ORDERED: HYDR-3895 PO (14:25)
[2017-12-01 16:00] VITALS: BP 121/65
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
--- NOTE | 2017-12-01 19:45 | NUR ---
Start of Shift Note Received 22 y/o male px, admitted for medically supervised withdrawal from Xanax, and Heroin. Px completed a 5 day modified Valium taper started on 11/26/2017 and 4 day Subutex taper started on 11/28/2017. Last reported COWS 6 and CIWA 7 by AM shift nurse. During the rounds at 1999, px is awake inside his room. Px states "I will be leaving tonight. They kicked me out." Bed on lowest position, side rails up 2x and call light within reach. We'll continue to monitor.
[2017-12-01 20:00] VITALS: BP 116/63
--- NOTE | 2017-12-01 20:19 | NUR ---
Discharge Note Gregorio is in stable condition. VS are as follows BP= 116/63 Addendum: 12/01/17 at 2336 by FATMATA PARKER RN MN= 77, RR= 19, T= 98.0, O2sat= 98 % on RA. Skin is intact. Gregorio denies any suicidal or homicidal ideations. All D/C paper work signed and dated. Gregorio was D/C from [facility] at 2019. Gregorio left the building with his belongings. notified.
[2017-12-01] MEDS ORDERED: QUETIAPINE FUMARATE 100 MG TABLET PO SCH (21:00)
[2017-12-02] MEDS ORDERED: SERTRALINE HCL 50 MG TABLET PO SCH (09:00)
[2017-12-02] MEDS ORDERED: SERTRALINE HCL 100 MG TABLET PO SCH (09:00)
== END 2017-12-01 20:19 | disposition home or self-care (01) | DRG 895 ==
LOC: SRC 12:05
PROVIDERS: ADMIT Internal Medicine; ATTEND Internal Medicine
PROC: HZ2ZZZZ Detoxification Services for Substance Abuse Treatment (ICD-10-PCS; principal; 2017-11-26)
PROC: HZ41ZZZ Group Counseling for Substance Abuse Treatment, Behavioral (ICD-10-PCS; 2017-11-27)
PROC: HZ31ZZZ Individual Counseling for Substance Abuse Treatment, Behavioral (ICD-10-PCS; 2017-11-29)
DX: F10.230 Alcohol dependence with withdrawal, uncomplicated (principal); R56.9 Unspecified convulsions; F11.23 Opioid dependence with withdrawal; F13.230 Sedative, hypnotic or anxiolytic dependence with withdrawal, uncomplicated; Y90.9 Presence of alcohol in blood, level not specified; F90.9 Attention-deficit hyperactivity disorder, unspecified type; F41.0 Panic disorder [episodic paroxysmal anxiety]; F43.10 Post-traumatic stress disorder, unspecified; G47.00 Insomnia, unspecified; Z59.0 Homelessness; F17.210 Nicotine dependence, cigarettes, uncomplicated; Z59.1 Inadequate housing
CPT/HCPCS: 36415; 70030-TC; 80307; 80346; 80349; 80353; 83690; 83735; 85025; 86580; 86592; 86705; 86803; 87340; 87806; 94664; A4663; G0480; J1885; J3411; Q0163